=== PATIENT | female | born 2005 | race African-American/Black ===

== ENCOUNTER 2025-03-23 15:40 | Outpatient (AMB) | payer MEDICAID, SELFPAY ==
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
[2025-03-23 15:53] VITALS: BP 112/58; PULSE 82; O2SAT 99; BMI 18.9
--- OUTSIDE RECORDS SUMMARY | 2025-03-23 18:35 | XMS_ITS | Clinical Summary ---
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 history exists Influenza Vaccines (#1) 2024 08/12/19 24, 04/22/2022, 01/03/2021, Additional history exists COVID-19 Vaccine (1 - 2024-2 6 season) 2025 Men B Vaccine (2 of 2 - Trum enba SCDM 2-dose series) 04/13/2025 10/12/2024 DTaP,Tdap,and Td Vaccines (8 - Td or Tdap) 01/21/2035 01/21/2025, 04/27/2017, 08/02/2010, Additional history exists Hepatitis B Vaccines Completed 04/21/2006, 02/13/2006, 2005, Additional history exists HIB Vaccines Completed 05/14/2007, 04/10, 02/13/2006, Additional history exists Hepatitis A Vaccines Completed 10/11/2008, 05/28/19 08 IPV Vaccines Completed 08/02/2010, 04/10, 02/13/2006, Additional history exists MMR Vaccines Completed 01/14/2013, 05/28/2007 Varicella Vaccines Completed 01/14/2013, 05/28/2007 HPV Vaccines Completed 06/04/2018, 06/02/2017 Meningococcal Vaccine Completed 04/22/2022, 018 Chlamydia and Gonorrhea Screening Completed 10/12/2024, 09/13/2024, 05/18/2024, Additional history exists HIV Screening Completed 10/12/2024, 0407/2023, 11/04/2022, Additional history exists Hepatitis C Screening Completed 10/12/2024 , 08/12/2023, 11/04/2022, Additional history exists Procedures * Due to [place] [employer] law, this organization might not be sharing sensitive test results. Procedure Name Priority Date/Time Associated Diagnosis Comments HEPATITIS C ANTIBODY WITH REFLEX TO HCV, RNA, QUANT, RT PCR Routine 10/12/2024 2:55 PM EDT Screening examination for STI CHLAMYDIA AND GONORRHEA, AMPLIFIED Routine 10/12/2024 2:12 PM EDT Screening for chlamydial disease from Last 3 Months or Most Recently Relevant to Health Maintenance Results * Due to [place] [employer] law, this organization might not be sharing sensitive test results. * Hepatitis C Antibody w/ reflex to HCV RNA Quant RT PCR (10/12/2024 2:55 PM EDT) HCV Ab Non Reactive Non Reactive [facility] Blood 10/12/2024 2:55 PM EDT 10/12/2024 Narrative [facility] - 10/13/2024 11:05 AM EDT Performed at: 01 - [facility], [address], [place], [place] [id number] Scullion Chief: Nawaf Sepulveda MD, Phone: [phone] us Sulema Munoz MD LAB BLOOD ORDERABLES Final Re sult [facility] [address] [place] [address] * Chlamydia and Gonorrhoea, Amplified (10/12/2024 2:12 PM EDT) C trach APRIL Negative Negative [facility] N gonorrhoeae APRIL Negative Negative [facility] Urine (Urine) 10/12/2024 2:1 2 PM EDT 10/12/2024 Comment:UR Narrative [facility] - 10/13/2024 4:05 PM EDT Performed at: - [facility] [address], [address], [place], [place] [id number] Scullion Chief: Nawaf Sepulveda MD, Phone: [phone] Sulema Munoz MD LAB MICROBIOLOGY - GENERAL OR DERABLES Final Result Performing Organization Address City/State/[facility] Co de Phone Number [facility] [address] [place] [address] from Last 3 Months or Most Recently Relevant to Health Maintenance [facility] P[facility] NON PCC [employer] Care Teams Oilseed Meat Presser Relationship Specialty Start Date End Date Sulema Munoz MD [address] [place] [phone] PCP - General Pediatrics 01/27/23
--- OUTSIDE RECORDS SUMMARY | 2025-03-23 18:35 | XMS_ITS | Encounter Summary ---
Author Organization [facility] Address [address] [place] [address] Phone Care Team Providers Care Farmworker Chicken [employer] Name Role Phone Sulema Munoz MD Primary Care Provider [phone] Encounter Details Date Type Department Care Team (Late st Contact Info) Description 07/03/2016 Documentation [facility] [address] [place] [address] Family Medicine, Physician [address] [place] [address] Social History Tobacco Use Types Packs/Day Years Used Date Smoking Tobacco: Never Assessed Comments Unknown Sex and Gender Information Value Date Recorded Sex Assigned at Not on file Legal Sex Female 5:09 PM EDT Gender Identity Female 05/16/2020 8:14 AM EST Sexual Orientation Straight 05/22/2023 9: 13 AM EST documented as of this encounter Plan of Treatment Not on file documented as of this encounter Visit Diagnoses Not on filedocumented in this encounter Care Teams Farmworker Chicken Farm Relationship Specialty Start Date End Date Sulema Munoz MD [address] [place] [phone] PCP - General Pediatrics 01/27/23 documented as of this encounter
--- OUTSIDE RECORDS SUMMARY | 2025-03-23 18:35 | XMS_ITS | Encounter Summary ---
Author Organization [facility] Address [address] [place], [place] [address] Phone Care Team Providers Care Cash Analyst Name Role Phone Sulema Munoz MD Primary Care Provider [phone] Reason for Visit * Reason Comments Med Refill Encounter Details Date Type Department Care Team ([facility] st Contact Info) Description 03/13/2023 Refill [facility] [address] [place] [address] Sulema Munoz MD [address] [place] [address] Bronchospasm Social History Tobacco Use Types Packs/Day Years Used Date Smoking Tobacco: Some Days Cigarettes Smokeless Tobacco: Never Alcohol Use Standard Drinks/Week Comments Yes 0 (1 standard drink = 0.6 oz pur e alcohol) occasional shots Hunger/Food Answer Date Recorded In the last 12 months, did y ou or your family ever eat less than you felt you should because there wasn't enough money for food? No 01/03/2021 Stable Housing Answer Date Recorded Are you worried that in the next 2 months you may not have stable housing? No 01/03/2021 Transportation Concerns Answer Date Rec orded In the last 12 months, have you or your family ever had to go without healthcare because you didn't have a way to get there? No 01/03/2021 Hazards in Home Answer Date Recorded Think about the place you li ve. Do you have problems with any of the following? Pests (mice or roaches), mold, no/not working smoke detectors, water leaks, no window guards. No 2020 Financing Utilities Answer Date Recorde d In the last 12 months, has t he electric, gas, oil, or water company threatened to shut off your services in your home? No 01/03/2021 Safety at Home Answer Date Recorded Are you or your family worried about feeling saf e in your home? No 01/03/2021 Outside Support Answer Date Recorded Do you feel that you need mo re support from other people or programs to help you care for yourself or your family? No 01/03/2021 Understanding Health Concerns Answer Da te Recorded Do you need help understandi ng your or your child's healthcare needs (diagnosis, medications, plan, etc.)? No 01/03/2021 Financing Health Concerns Answer Date R ecorded In the last 12 months, was t here a time when your child needed to see a doctor or get medications or supplies but could not because of cost? No 01/03/2021 Missing School or Work Answer Date Raffaele rded Did you or your child miss s chool or work because of a health problem that could have been avoided? No 01/03/2021 Comments No Sex and Gender Information Value Date Recorded Sex Assigned at Not on file Legal Sex Female 5:09 PM EDT Gender Identity Female 05/16/2020 8:14 AM EST Sexual Orientation Straight 05/22/2023 9: 13 AM EST documented as of this encounter Miscellaneous Notes * Telephone Encounter - Sulema Munoz MD - 03/13/2023 6:07 PM EDT Not on fdc ICS. Pt should call if she is having symptoms. * Telephone Encounter - Tosha Glover LPN - 03/13/2023 12:07 PM EDT Pharm requesting refill for Flovent inhaler. Last PE 04/22/22. Last med check 01/27/23. documented in this encounter Plan of Treatment Not on file documented as of this encounter Visit Diagnoses Diagnosis Bronchospasm Acute bronchospasm documented in this encounter Care Teams Cash Analyst Relationship Specialty Start Date End Date Sulema Munoz MD [address] [place] [id number] PCP - General Pediatrics 01/27/23 documented as of this encounter
--- OUTSIDE RECORDS SUMMARY | 2025-03-23 18:35 | XMS_ITS | Encounter Summary ---
Author Organization [facility] Address [address] [place] [address] Phone Care Team Providers Care Obiee Consultant Name Role Phone Sulema Munoz MD Primary Care Provider [phone] Encounter Details Date Type Department Care Team (Late st Contact Info) Description 02/10/2010 Documentation [facility] [place] Family Medicine [address] [place] [address] Family Medicine, Physician [address] [place] [address] Social History Tobacco Use Types Packs/Day Years [...] on filedocumented in this encounter Care Teams Obiee Consultant Relationship Specialty Start Date End Date Sulema Munoz MD [address] [place] [phone] PCP - General Pediatrics 01/27/23 documented as of this encounter
--- OUTSIDE RECORDS SUMMARY | 2025-03-23 18:35 | XMS_ITS | Encounter Summary ---
Author Organization [facility] Address [address] [place] [address] Phone Care Team Providers Care Electronic Calibration Technician Name Role Phone Sulema Munoz MD Primary Care Provider [phone] Encounter Details Date Type Department Care Team (Late st Contact Info) Description 12/25/2016 Conversion Encounter [facility] [address] [place] [address] Social History Tobacco Use Types Packs/Day Years [...] on filedocumented in this encounter Care Teams Electronic Calibration Technician Relationship Specialty Start Date End Date Sulema Munoz MD [address] [place] [address] PCP - General Pediatrics 01/27/23 documented as of this encounter
--- OUTSIDE RECORDS SUMMARY | 2025-03-23 18:35 | XMS_ITS | Encounter Summary ---
Author Organization [facility] Address [address] [place] [address] Phone Care Team Providers Care Town Planner Name Role Phone Sulema Munoz MD Primary Care Provider [phone] Encounter Details Date Type Department Care Team (Late st Contact Info) Description 11/02/2012 Documentation [facility] [place] Family Medicine [address] [place] [address] Family Medicine, Physician [address] [place] [address] Social History Tobacco Use Types Packs/Day Years [...] on filedocumented in this encounter Care Teams Town Planner Relationship Specialty Start Date End Date Sulema Munoz MD [address] [place] [phone] PCP - General Pediatrics 01/27/23 documented as of this encounter
--- OUTSIDE RECORDS SUMMARY | 2025-03-23 18:35 | XMS_ITS | Encounter Summary ---
Author Organization [facility] Address [address] [place] [address] Phone Care Team Providers Care Chronic Specialist Name Role Phone Sulema Munoz MD Primary Care Provider [phone] Encounter Details Date Type Department Care Team (Late st Contact Info) Description 05/08/2016 [place]ation [facility] [address] [place] [address] Family Medicine, Physician [address] [place] [address] Social History Tobacco Use Types Packs/Day Years [...] on filedocumented in this encounter Care Teams Chronic Specialist Relationship Specialty Start Date End Date Sulema Munoz MD [address] [place] [phone] PCP - General Pediatrics 01/27/23 documented as of this encounter
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
== END 2025-03-23 16:33 | disposition home or self-care (01) ==
LOC: HO.HGI 15:40
PROVIDERS: PCP Pediatrics; Visit Provider Nurse Practitioner Family
DX: R63.4 Abnormal weight loss (principal)
CPT/HCPCS: 99204

== ENCOUNTER → 2025-03-23 15:40 | Outpatient (BNVA) | payer MEDICAID, SELFPAY | PROVIDERS: PCP Pediatrics; Visit Provider Nurse Practitioner Family | DX: R63.4 Abnormal weight loss (principal) | CPT/HCPCS: 99212 ==